=== PATIENT | male | born 1980 | race African-American/Black ===

== ENCOUNTER 2017-11-12 10:15 | Emergency (ER) | payer OTHER ==
[~2017-11-12] VITALS: Ht 182.9 cm; Wt 104.2 kg
[2017-11-12 10:18] VITALS: BP 135/95; PULSE 68; TEMP 36.9; O2SAT 97; Ht 182.9 cm; Wt 104.2 kg
[2017-11-12] MEDS ORDERED: OMEP40CA41 PO (10:35)
--- NOTE | 2017-11-12 11:57 | EMERGENCY ROOM VISIT NOTE ---
History Report prepared by Star: Mis White Under the Supervision of: Dr. Roc Webb D.O. First contact with patient: 10:25 Chief Complaint: THROAT PAIN/INJURY Stated Complaint: SORE THROAT History of Present Illness The patient is a 37 year old male who presents to the Emergency Room with complaints of throat pain over the last 6 months. He states that it has been worsening and that he has had trouble swallowing. He states that he was told that his symptoms were GERD in the past. He reports that he is not currently taking medications for GERD. He states that he has not seen a GI specialist yet secondary to his traveling. The patient says he feels like food is coming up his throat, and he reports having to occasionally vomit food that hasn't fully been digested. He states that he feels as if there is a "knot in his throat." The patient states he has been consuming fluids regularly and he denies any trouble breathing. Source of History: patient Onset: 6 months ago Position: throat Quality: other (pain) Timing: worsening Associated Symptoms: + vomiting (secondary to undigested food ) Note: denies: trouble breathing Review of Systems See HPI for pertinent positives & negatives. A total of 10 systems reviewed and were otherwise negative. Past Medical & Surgical Medical Problems: (1) GERD (gastroesophageal reflux disease) Family History No pertinent family history Social History Smoking Status: Current Every Day Smoker Marital Status: single Occupation Status: employed Current/Historical Medications Scheduled Omeprazole (Prilosec), 1 CAP PO DAILY Physical Exam Vital Signs Date Time Temp Pulse Resp B/P (MAP) Pulse Ox O2 Delivery O2 Flow Rate FiO2 11/12/17 10:31 Room Air 11/12/17 10:18 36.9 68 17 135/95 97 Room Air Physical Exam CONSTITUTIONAL/VITAL SIGNS: Reviewed / noted above. GENERAL: Non-toxic in appearance. INTEGUMENTARY: Warm, dry, and [place]. HEAD: Normocephalic. EYES: without scleral icterus or trauma. ENT/OROPHARYNX: clear and moist. LYMPHADENOPATHY/NECK: Is supple without lymphadenopathy or meningismus. RESPIRATORY: Lungs clear and equal. CARDIOVASCULAR: Regular rate and rhythm. GI/ABDOMEN: Soft and nontender. No organomegaly or pulsatile mass. No rebound or guarding. Normal bowel sounds. EXTREMITIES: Warm and well perfused. BACK: No CVA tenderness. NEUROLOGICAL: Intact without focal deficits. PSYCHIATRIC: normal affect. MUSCULOSKELETAL: Normally developed with good muscle tone. Medical Decision & Procedures ED Course 1027: Previous medical records were reviewed. The patient was evaluated in room B5. A complete history and physical examination was performed. 1042: On reevaluation, the patient is resting. I discussed the treatment plan with the patient. He verbalized agreement of the treatment plan. The patient was discharged home. Medical Decision Differential includes pharyngitis, esophageal reflux, partial esophageal obstruction, Schatzki's rings. The patient is a 37-year-old male who presents to the ED with a chief complaint of a sore throat and some occasional difficulty with swallowing. He has had the symptoms for about 6 months. He has not seen a GI specialist yet. He states that he recently moved to the area. He will be here for the next year or 2. The patient denies any shortness of breath or chest pains. His physical exam was unremarkable. He does report that he was told his symptoms are related to reflux. He is currently not on an acid inhibitor. After evaluating the patient, he was started on Prilosec. He was given a referral to see Dr. Rosario. He was felt to be stable for discharge. Blood Pressure Screening Patient's blood pressure: Normal blood pressure Impression Primary Impression: Dysphagia Additional Impression: Sore throat Scribe Attestation The scribe's documentation has been prepared under my direction and personally reviewed by me in its entirety. I confirm that the note above accurately reflects all work, treatment, procedures, and medical decision making performed by me. Departure Information Dispostion Home / Self-Care Prescriptions Omeprazole (PRILOSEC) 40 Mg Cap 1 CAP PO DAILY for 30 Days, #30 CAP 3 Refills Prov: Roc Webb D.O. 11/12/17 Referrals Moiz Rosario D.O. Forms HOME CARE DOCUMENTATION FORM, IMPORTANT VISIT INFORMATION, WORK / SCHOOL INSTRUCTIONS Patient Instructions My [facility] Additional Instructions Follow-up with GI specialist, Dr. Rosario, for further evaluation of symptoms. Take Prilosec as prescribed. Problem Qualifiers
== END 2017-11-12 10:42 | disposition home or self-care (01) ==
LOC: C.EDB 10:17
DX: R13.10 Dysphagia, unspecified (principal); J02.9 Acute pharyngitis, unspecified; K21.9 Gastro-esophageal reflux disease without esophagitis; F17.200 Nicotine dependence, unspecified, uncomplicated